=== PATIENT | male | born 1935 | race Caucasian/White ===

== ENCOUNTER 2018-08-09 14:01 | Outpatient (CLI) | payer MEDICAID ==
[2018-08-09 14:00] VITALS: BP 127/79
[2018-08-09] MEDS ORDERED: TAMSULOSIN HCL0.4 MG ORAL (16:18)
[2018-08-09] MEDS ORDERED: MICROZIDE12.5 M1 PO (16:18)
[2018-08-09] MEDS ORDERED: TRAMADOL HCL100 M2 ORAL (16:18)
--- NOTE | 2018-08-09 16:22 | GI Initial Consult Note ---
History of Present Illness General Date patient seen: Aug 09, 2018 Time patient seen: 15:56 Referring physician: O Reason for Consultation: G-tube removal Present Illness HPI 83-year-old male patient, with history of renal cancer status post right nephrectomy presents today for G-tube removal. According to the family patient , the patient has been tolerating p.o. intake and eating well for the past month. G-tube has not been used for that month. Denies any GI symptoms; denies any abdominal pain, nausea vomiting or diarrhea. Denies any unintentional weight loss or changes in dietary habits. No signs of abuse or neglect. The patient has unsteady gait and uses a wheelchair for transportation. Home Meds Reported Medications Hydrochlorothiazide (MICROZIDE) 12.5 Mg Capsule, 25 MG PO, CAP 08/09/18 Tramadol Hcl (TRAMADOL HCL) 100 Mg Tab.er.24h, 50 MG ORAL DAILY, TAB 08/09/18 Tamsulosin Hcl (TAMSULOSIN HCL*) 0.4 Mg Cap.er.24h, 0.4 MG ORAL BEDTIME, CAP 08/09/18 Med list reviewed/reconciled: Yes Allergies: Coded Allergies: No Known Allergies (Unverified , 08/09/18) Patient History History Provided By: Patient, Medical Record [facility] Narrative History of renal cancer status post right nephrectomy BPH Hypertension History of dysphagia Pertinent Family History: none Social History: Denies: smoking, alcohol use, drug use, other Review of Systems All Other Systems: negative except mentioned in HPI Physical Exam Temperature 98.2 Blood pressure 127/79 Pulse 74 98% room air Height 5 feet Weight 183.7 pounds Sp02 EP Interpretation: reviewed, normal General Appearance: well appearing, no apparent distress, alert Head: normocephalic EENT: PERRL/EOMI, normal ENT inspection Neck: supple Respiratory: normal breath sounds, no respiratory distress Cardiovascular: normal rate Gastrointestinal: normal inspection, non tender, soft, normal bowel sounds, non -distended Rectal: deferred Genitourinary: deferred Musculoskeletal: normal inspection, back normal Neurologic: normal inspection, alert, oriented x3, responsive Psychiatric: normal inspection, judgement/insight normal, memory normal Skin: normal inspection, normal color, no rash, warm/dry, palpation normal, well hydrated Lymphatic: normal inspection, no adenopathy GI: Plan Problems: (1) PEG (percutaneous endoscopic gastrostomy) adjustment/replacement/removal (2) Hypertension (3) BPH (benign prostatic hyperplasia) (4) History of renal cell cancer (5) History of nephrectomy Plan G-tube removed at bedside. The patient was instructed not to shower for 24 hours. Defer endoscopy or colonoscopy given advanced age. Patient instructed to contact clinic if the G-tube site continues to bleed, does not heal, or has excessive leaking RTC as needed Seen with Dr. Carmona. Thank you for this patient referral. Viridiana Carrasco NP Aug 09, 2018 16:22
== END 2018-08-09 14:31 | disposition home or self-care (01) ==
LOC: PAN 14:01
DX: Z43.1 Encounter for attention to gastrostomy (principal); Z85.528 Personal history of other malignant neoplasm of kidney; Z90.5 Acquired absence of kidney; I10 Essential (primary) hypertension; N40.0 Benign prostatic hyperplasia without lower urinary tract symptoms
CPT/HCPCS: 99202